=== PATIENT | male | born 1970 | race Caucasian/White ===

== ENCOUNTER 2018-07-25 12:26 | Emergency (ER) | payer OTHER ==
[2018-07-25 13:04] VITALS: BP 156/91
[2018-07-25] MEDS ORDERED: TETANUS/DIPHTHERIA/PERTUSSIS 0.5 ML SYRINGE IM ONE (14:30)
[2018-07-25] MEDS ORDERED: AMOX/CLAV 875 MG/125 MG TABLET PO STA (14:30)
[2018-07-25] MEDS ORDERED: IBUPROFEN 800 MG TABLET PO STA (14:31)
--- NOTE | 2018-07-25 14:33 | ED Physician Documentation ---
PD HPI UPPER EXT INJURY - Stated complaint Stated Complaint: R HAND SWELLING - Chief complaint Chief Complaint: Wound - History obtained from History obtained from: Patient - History of Present Illness Location: Right (He was bitten by his own fully immunized cat to the right index finger 2 days ago and has progressive pain and swelling there. Tetanus is unknown.) Review of Systems Constitutional: denies: Fever, Chills Cardiac: reports: Reviewed and negative Respiratory: reports: Reviewed and negative PD PAST MEDICAL HISTORY - Past Medical History Past Medical History: No - Present Medications Home Medications: Ambulatory Orders Medication Instructions Recorded Confirmed Amox/Clav 875/125 [Augmentin 1 tab PO BID 10 Days #20 tablet 07/25/18 875/125] Hydrocodone/Acetaminophen 1 - 2 each PO Q6H PRN #7 tablet 07/25/18 [Hydrocodon-Acetaminophen 5-325] PD ED PE NORMAL - Vitals Vital signs reviewed: Yes - General General: Alert and oriented X 3, No acute distress - Extremities Extremities: Other (There is a puncture wound on the palmar side of the right index PIP from which I am able to express just a dot of pus which is cultured. He is able to fully extend the finger and he does not really have any tenderness tracking along the flexor tendon sheath. That said there is mild swelling and tenderness of the area of the puncture wound itself.) - Neuro Neuro: Alert and oriented X 3, Normal speech Results - Vitals Vitals: Vital Signs - 24 hr 07/25/18 12:59 Temperature 36.2 C L Heart Rate 70 Respiratory 16 Rate Blood Pressure 156/91 H O2 Saturation 99 Oxygen O2 Source Room air PD MEDICAL DECISION MAKING - ED course ED course: 48-year-old gentleman with Bite of the right index finger with signs of mild infection but no evidence of flexor tenosynovitis at this juncture. He is placed on Augmentin and tetanus is updated. Departure - Departure Disposition: 01 Home, Self Care Clinical Impression: Animal bite with open wound Condition: Good Record reviewed to determine appropriate education?: Yes Instructions: ED Bite Animal General Prescriptions: Amox/Clav 875/125 [Augmentin 875/125] 1 tab PO BID 10 Days #20 tablet Hydrocodone/Acetaminophen [Hydrocodon-Acetaminophen 5-325] 1 - 2 each PO Q6H PRN #7 tablet PRN Reason: pain Comments: As discussed, return immediately for reevaluation if you develop fevers, cannot straighten the finger, progressive or severe pain. Otherwise follow-up with your doctor in 2 days for wound check. Your blood pressure was elevated today on check into the emergency department. This does not mean that you have hypertension, it is a common phenomenon to come to the emergency department and have elevated blood pressure. I recommend that you see your primary care physician within the week to have it rechecked when you are feeling better.
== END 2018-07-25 14:49 | disposition home or self-care (01) ==
LOC: ED 12:26
DX: S61.250A Open bite of right index finger without damage to nail, initial encounter (principal); W55.01XA Bitten by cat, initial encounter; Z23 Encounter for immunization
CPT/HCPCS: 87070; 87181; 87205; 90471; 90715; 99283; A9270

== ENCOUNTER 2018-07-29 09:24 | Outpatient (CLI) | payer OTHER ==
[2018-07-29 13:16] LABS: EOSINOPHILS # (AUTO) 0.3 10^3/uL (0.0-0.7); EOSINOPHILS % (AUTO) 6.3 %; HGB - HEMOGLOBIN 15.8 g/dL (14.0-18.0); LYMPHOCYTES # (AUTO) 1.1 10^3/uL (1.5-3.5); LYMPHOCYTES % (AUTO) 22.2 %; MEAN CORPUSCULAR HEMOGLOBIN 29.7 pg (27.0-31.0); MEAN CORPUSCULAR HGB CONC 34.3 g/dL (32.0-36.0); MEAN CORPUSCULAR VOLUME 86.5 fL (80.0-94.0); MEAN PLATELET VOLUME 8.5 fL (7.4-11.4); MONOCYTES # (AUTO) 0.6 10^3/uL (0.0-1.0); MONOCYTES % (AUTO) 11.6 %; NEUTROPHILS % (AUTO) 58.9 %; PLT - PLATELET COUNT 222 10^3/uL (130-450); RED BLOOD COUNT 5.31 10^6/uL (4.70-6.10); RED CELL DISTRIBUTION WIDTH 13.3 % (12.0-15.0)
[2018-07-29 13:40] LABS: HB2 TOTAL 17.3 g/dL; HEMOGLOBIN A1C 0.62 g/dL; HEMOGLOBIN A1C % 5.4 % (4.6-6.2)
[2018-07-29 13:57] LABS: ALBUMIN 4.8 g/dL (3.2-5.5); ALBUMIN/GLOBULIN RATIO 1.7 (1.0-2.2); ALKALINE PHOSPHATASE 31 IU/L (42-121); ALT ALANINE AMINOTRANSFERASE 33 IU/L (10-60); AST ASPARTATE AMINOTRANSFERASE 40 IU/L (10-42); BILIRUBIN,TOTAL 0.8 mg/dL (0.2-1.0); BUN - BLOOD UREA NITROGEN 17 mg/dL (6-20); CALCIUM 9.4 mg/dL (8.5-10.3); CARBON DIOXIDE - CO2 24 mmol/L (21-32); CHLORIDE 103 mmol/L (101-111); CHOL/HDL RATIO 4.3 (<5.0); CHOLESTEROL 245 mg/dL; GFR - MDRD 79 (>89); GLUCOSE 99 mg/dL (70-100); HDL CHOLESTEROL 57 mg/dL; LDL CHOLESTEROL,CALCULATED 175 mg/dL; LDL/HDL RATIO 3.1 (<3.6); SODIUM 135 mmol/L (135-145); TOTAL PROTEIN 7.6 g/dL (6.7-8.2); VLDL CHOLESTEROL 13 mg/dL
== END 2018-07-29 09:25 | disposition home or self-care (01) ==
LOC: LAB.WCP 09:24
PROVIDERS: ATTEND Family Medicine
DX: E78.5 Hyperlipidemia, unspecified (principal); I10 Essential (primary) hypertension; J45.909 Unspecified asthma, uncomplicated; Z13.1 Encounter for screening for diabetes mellitus
CPT/HCPCS: 36415; 80053; 80061; 83036; 83721; 84443; 85025

== ENCOUNTER 2018-08-01 09:56 | Outpatient (CLI) | payer OTHER ==
[2018-08-03 12:36] LABS: THYROID PEROXIDASE ANTIBODIES 48 IU/mL (<9)
== END 2018-08-01 09:57 | disposition home or self-care (01) ==
LOC: LAB.WCP 09:56
PROVIDERS: ATTEND Family Medicine
DX: R94.6 Abnormal results of thyroid function studies (principal)
CPT/HCPCS: 36415; 84439; 84481; 86376; 86800

== ENCOUNTER 2019-10-04 12:48 | Day surgery (SDC) | payer OTHER ==
[2019-10-04] MEDS ORDERED: fentaNYL 250 MCG/5 ML VIAL IVP ONE (12:49)
[2019-10-04] MEDS ORDERED: MIDAZOLAM 2 MG/2 ML VIAL IVP ONE (12:49)
[2019-10-04] MEDS ORDERED: LACTATED RINGERS 1,000 ML IV ONE (12:56)
[2019-10-04 15:41] VITALS: BP 126/87
== END 2019-10-04 12:49 | disposition home or self-care (01) ==
LOC: SDS 12:48
PROVIDERS: ATTEND Internal Medicine Gastroenterology
PROC: 0DBN8ZZ Excision of Sigmoid Colon, Via Natural or Artificial Opening Endoscopic (ICD-10-PCS; principal; 2019-10-04 14:00)
DX: Z12.11 Encounter for screening for malignant neoplasm of colon (principal); D12.7 Benign neoplasm of rectosigmoid junction
CPT/HCPCS: 45385; J3010; J7120

== ENCOUNTER 2023-09-28 12:18 | Outpatient (CLI) | payer OTHER ==
[2023-09-28 12:32] LABS: BASOPHILS % (AUTO) 0.7 %; EOSINOPHILS # (AUTO) 0.3 10^3/uL (0.0-0.7); EOSINOPHILS % (AUTO) 6.3 %; HCT - HEMATOCRIT 46.4 % (42.0-52.0); HGB - HEMOGLOBIN 14.8 g/dL (14.0-18.0); LYMPHOCYTES % (AUTO) 23.5 %; MEAN CORPUSCULAR HEMOGLOBIN 28.4 pg (27.0-31.0); MEAN CORPUSCULAR HGB CONC 31.9 g/dL (32.0-36.0); MEAN CORPUSCULAR VOLUME 89.1 fL (80.0-94.0); MEAN PLATELET VOLUME 9.8 fL (7.4-11.4); MONOCYTES # (AUTO) 0.5 10^3/uL (0.0-1.0); MONOCYTES % (AUTO) 12.2 %; NEUTROPHILS # (AUTO) 2.5 10^3/uL (1.5-6.6); NEUTROPHILS % (AUTO) 57.1 %; PLT - PLATELET COUNT 217 10^3/uL (130-450); RED BLOOD COUNT 5.21 10^6/uL (4.70-6.10); RED CELL DISTRIBUTION WIDTH 12.8 % (12.0-15.0); WHITE BLOOD COUNT 4.4 x10^3/uL (4.8-10.8)
[2023-09-28 13:03] LABS: ALBUMIN 4.9 g/dL (3.2-5.5); ALKALINE PHOSPHATASE 31 IU/L (42-121); ALT ALANINE AMINOTRANSFERASE 38 IU/L (10-60); AST ASPARTATE AMINOTRANSFERASE 31 IU/L (10-42); BUN - BLOOD UREA NITROGEN 15 mg/dL (6-20); CALCIUM 9.6 mg/dL (8.5-10.3); CARBON DIOXIDE - CO2 28 mmol/L (21-32); CHLORIDE 104 mmol/L (101-111); CHOL/HDL RATIO 3.5 (<5.0); CHOLESTEROL 267 mg/dL; CREATININE 1.1 mg/dL (0.6-1.3); GFR - MDRD 70 (>89); GLUCOSE 101 mg/dL (74-104); HDL CHOLESTEROL 76 mg/dL; LDL CHOLESTEROL,CALCULATED 174 mg/dL; LDL/HDL RATIO 2.3 (<3.6); POTASSIUM 4.1 mmol/L (3.5-4.5); SODIUM 139 mmol/L (135-145); TOTAL PROTEIN 7.4 g/dL (6.4-8.9); TRIGLYCERIDES 84 mg/dL (48-352); VLDL CHOLESTEROL 17 mg/dL
== END 2023-09-28 12:19 | disposition home or self-care (01) ==
LOC: LAB 12:18
PROVIDERS: ATTEND Nurse Practitioner
DX: I10 Essential (primary) hypertension (principal); E78.5 Hyperlipidemia, unspecified; R94.6 Abnormal results of thyroid function studies
CPT/HCPCS: 36415; 80053; 80061; 83721; 84153; 84439; 84443; 85025